=== PATIENT | female | born 1995 ===

== ENCOUNTER 2017-11-03 08:40 | Emergency (ER) | payer BC ==
[2017-11-03 08:50] VITALS: BP 114/70
--- NOTE | 2017-11-03 10:51 | UC ---
Throat Pain/Nasal Kunal HPI - HPI Summary HPI Summary: 22 yo WF c/o thorat pain x 2 days, a friend has strep and is concerned. Denies any URI sx - History of Current Complaint Chief Complaint: UCGeneralIllness Stated Complaint: SORE THROAT Hx Obtained From: Patient Hx Last Menstrual Period: 10/09/17 Onset/Duration: Sudden Onset Pain Intensity: 3 Pain Scale Used: 0-10 Numeric Cough: None Associated Signs & Symptoms: Positive: Negative - Allergies/Home Medications Allergies/Adverse Reactions: Allergies Allergy/AdvReac Type Severity Reaction Status Date / Time pollen extracts Allergy eyes red Verified 11/03/17 08:50 and itchy strawberries Allergy Nausea Uncoded 11/03/17 08:51 Home Medications: Home Medications Norethindrone AC-Eth Estradiol [Sonu 1.5 mg-30 Mcg Tablet] 1 tab PO DAILY 11/03 [History Confirmed 11/03/17] carBAMazepine TAB(*) [Tegretol TAB(*)] 200 mg PO DAILY 11/03/17 [History Confirmed 11/03/17] PMH/Surg Hx/FS Hx/Imm Hx Previously Healthy: Yes - Surgical History Surgical History: Yes Surgery Procedure, Year, and Place: wisdom teeth - Social History Alcohol Use: Rare Substance Use Type: None Smoking Status (MU): Never Smoked Tobacco Review of Systems Constitutional: Negative Skin: Negative Eyes: Negative ENT: Sore Throat Respiratory: Negative Cardiovascular: Negative Gastrointestinal: Negative Genitourinary: Negative Motor: Negative Neurovascular: Negative Musculoskeletal: Negative Neurological: Negative Psychological: Negative All Other Systems Reviewed And Are Negative: Yes Physical Exam Triage Information Reviewed: Yes Appearance: No Pain Distress Vital Signs: Initial Vital Signs Temp 37.6 C 11/03/17 08:47 Pulse 80 11/03/17 08:47 Resp 16 11/03/17 08:47 BP 114/70 11/03/17 08:47 Pulse Ox 99 11/03/17 08:47 Eye Exam: Normal ENT: Positive: Hearing grossly normal, Pharyngeal erythema, TMs normal. Negative: Tonsillar swelling, Tonsillar exudate Dental Exam: Normal Neck exam: Normal Neck: Positive: 1 Respiratory Exam: Normal Cardiovascular Exam: Normal Abdominal Exam: Normal Musculoskeletal Exam: Normal Neurological Exam: Normal Psychological Exam: Normal Skin Exam: Normal Throat Pain/Nasal Course/Dx - Course Course Of Treatment: rapid strep neg - Differential Dx/Diagnosis Provider Diagnoses: viral pharyngitis Discharge - Sign-Out/Discharge Documenting (check all that apply): Discharge/Admit/Transfer - Discharge Plan Condition: Stable Disposition: HOME Patient Education Materials: Pharyngitis (ED) Referrals: No Primary Care Phys,NOPCP [Primary Care Provider] - Additional Instructions: Return to clinic of symptoms worsen - Billing Disposition and Condition Condition: STABLE Disposition: HOME
== END 2017-11-03 10:18 | disposition home or self-care (01) ==
LOC: UCEAST 08:40
DX: J02.8 Acute pharyngitis due to other specified organisms (principal)
CPT/HCPCS: 87651; 99211; G0463